=== PATIENT | male | born 1965 | race Caucasian/White ===

== ENCOUNTER → 2017-07-23 16:35 | Outpatient (CLI) | payer MEDICAID ==
[2017-07-24 08:47] LABS: BASOPHILS 0.3 % (0-2); EOSINOPHILS 0.7 % (0-7); HEMATOCRIT 38.5 % (42.0-54.0); HEMOGLOBIN 12.6 g/dL (13.5-17.5); IMMATURE GRANULOCYTES 0.1 % (0-5); LYMPHOCYTES 2.6 % (15-50); MCHC 32.7 g/dL (31.0-37.0); MCV 88.7 fL (80.0-100.0); MEAN PLATELET VOLUME 11.7 fL (7.4-10.4); MONOCYTES 10.6 % (2-11); NEUTROPHILS 85.7 % (40-80); PLATELET COUNT 370 10x3/uL (130-400); RBC 4.34 10x6/uL (4.20-6.10); RDW 14.4 % (11.5-14.5); WBC 7.4 10x3/uL (4.8-10.8)
[2017-07-24 09:21] LABS: ALBUMIN 3.2 g/dL (3.4-5.0); ANION GAP 12.4 mmol/L (8-16); BILIRUBIN - TOTAL 0.5 mg/dL (0.2-1.3); C-REACTIVE PROTEIN 3.4 mg/dL (0.0-0.9); CALCIUM 8.4 mg/dL (8.5-10.1); CARBON DIOXIDE 27.3 mmol/L (21.0-32.0); CREATININE - SERUM 1.3 mg/dL (0.6-1.3); POTASSIUM - SERUM 3.7 mmol/L (3.5-5.1); PROTEIN - SERUM 6.3 g/dL (6.4-8.2); THYROID STIMULATING HORMONE 0.33 uIU/mL (0.36-3.74)
== END | disposition home or self-care (01) ==
LOC: D.LABREF 16:35
PROVIDERS: Internal Medicine Gastroenterology
DX: K64.0 First degree hemorrhoids (principal)